=== PATIENT | male | born 1995 | race Two or more races ===

== ENCOUNTER 2020-02-07 02:59 | Emergency (ER) | payer MEDICAID ==
[~2020-02-07] VITALS: Ht 170.2 cm; Wt 127.3 kg
[2020-02-07 04:32] LABS: ANION GAP 6 mmol/L (8-16); CALCIUM, TOTAL 8.3 mg/dL (8.8-10.5); CARBON DIOXIDE 31 mmol/L (22-29); CHLORIDE 102 mmol/L (98-107); CREATININE 0.99 mg/dL (0.60-1.30); GLOMERULAR FILTR. RATE CALC > 60 mL/min (>60); GLUCOSE,RANDOM 123 mg/dL (70-110); POTASSIUM 3.8 mmol/L (3.5-5.1); SODIUM SERUM 139 mmol/L (136-145); UREA NITROGEN, BLOOD 11 mg/dL (7-18)
[2020-02-07 04:33] LABS: BASOPHILS % (AUTO) 0.3 % (0.0-2.0); HEMATOCRIT 43.9 % (41-53); HEMOGLOBIN 14.7 g/dL (13.5-17.5); LYMPHOCYTES # (AUTO) 1.6 K/uL (1.0-4.8); LYMPHOCYTES % (AUTO) 26.9 % (22.0-44.0); MEAN CORPUSCULAR HEMOGLOBIN 29.3 pg (26.0-34.0); MEAN CORPUSCULAR HGB CONC 33.5 G/dL (31.0-37.0); MEAN CORPUSCULAR VOLUME 87 fL (80-100); MONOCYTES # (AUTO) 0.5 K/uL (0.1-1.0); MONOCYTES % (AUTO) 7.5 % (2.0-9.0); NEUTROPHILS # (AUTO) 3.9 K/uL (1.8-7.7); NEUTROPHILS % (AUTO) 64.3 % (40.0-70.0); PLATELET COUNT (AUTO) 212 K/uL (150-450); RED BLOOD CELL COUNT(AUTO) 5.03 MIL/uL (4.50-5.90); RED CELL DISTRIBUTION WIDTH 13.6 % (11.5-14.5)
[2020-02-07 04:34] LABS: PROTHROMBIN TIME 10.3 SEC (9.4-11.6)
[2020-02-07 04:57] LABS: ALANINE AMINOTRANSFERASE 81 U/L (12-78); ALBUMIN 4.1 g/dL (3.4-5.0); ALKALINE PHOSPHATASE 92 U/L (46-116); ASPARTATE AMINOTRANSFERASE 38 U/L (15-37); BILIRUBIN,TOTAL 0.3 mg/dL (0.1-1.0); CREATINE KINASE, TOTAL ONLY 90 U/L (39-308); TOTAL PROTEIN, SERUM 8.2 g/dL (6.4-8.2)
[2020-02-07] MEDS ORDERED: IBUPROFEN 800 MG TABLET PO ONE (05:00)
[2020-02-07] MEDS ORDERED: ACETAMINOPHEN 500 MG TABLET PO ONE (05:00)
[2020-02-07 05:12] LABS: B-TYPE NATRIURETIC PEPTIDE < 4 pg/mL (0-100)
[2020-02-07 08:17] VITALS: BP 123/68
== END 2020-02-07 08:15 | disposition home or self-care (01) ==
LOC: EMS 02:59
DX: R07.89 Other chest pain (principal); R05 Cough; R00.2 Palpitations; Z20.828 Contact with and (suspected) exposure to other viral communicable diseases
CPT/HCPCS: 93005

== ENCOUNTER 2020-12-17 06:57 | Emergency (ER) | payer MEDICAID ==
[~2020-12-17] VITALS: Ht 185.4 cm; Wt 118.2 kg
[2020-12-17] MEDS ORDERED: ACETAMINOPHEN 500 MG TABLET PO ONE (07:15)
[2020-12-17] MEDS ORDERED: ONDANSETRON HCL 4 MG TABLET PO ONE (07:15)
[2020-12-17] MEDS ORDERED: MAG HYDROX/AL HYDROX/SIMETH 30 ML SUSP UDCUP PO ONE (07:15)
[2020-12-17] MEDS ORDERED: FAMOTIDINE 20 MG TABLET PO ONE (07:15)
[2020-12-17 08:14] LABS: COVID AG,FIA SOURCE NASOPHARYNGEAL
[2020-12-17 08:29] VITALS: BP 137/83
[2020-12-17 09:02] LABS: INFLUENZA TYPE A NEGATIVE FOR TYPE A (NEGATIVE)
[2020-12-17 09:03] LABS: INFLUENZA TYPE B NEGATIVE FOR TYPE B (NEGATIVE)
== END 2020-12-17 09:47 | disposition home or self-care (01) ==
LOC: EMS 06:59
DX: R11.2 Nausea with vomiting, unspecified (principal); R10.13 Epigastric pain; R19.7 Diarrhea, unspecified; Z20.822 Contact with and (suspected) exposure to COVID-19
CPT/HCPCS: 87426; 87804; 99284; Q0162; U0003

== ENCOUNTER 2021-01-03 09:49 | Emergency (ER) | payer MEDICAID ==
[~2021-01-03] VITALS: Ht 177.8 cm; Wt 129.6 kg
[2021-01-03] MEDS ORDERED: GuaiFENesin/D-METHORPHAN [SUGAR-FREE] 200-20MG/10 ML SYRUP UDCUP PO ONE (10:15)
[2021-01-03] MEDS ORDERED: IBUPROFEN 600 MG TABLET PO ONE (10:15)
[2021-01-03] MEDS ORDERED: ACETAMINOPHEN 500 MG TABLET PO ONE (10:15)
[2021-01-03 10:29] LABS: COVID AG,FIA SOURCE NASOPHARYNGEAL
[2021-01-03 11:24] VITALS: BP 138/88
== END 2021-01-03 11:29 | disposition home or self-care (01) ==
LOC: EDUNIT# 09:49 → EMS 09:49 → EDBD 09:49 → EMS 11:29
DX: J40 Bronchitis, not specified as acute or chronic (principal)
CPT/HCPCS: 87426; 99284; Z7502; Z7610

== ENCOUNTER 2021-04-03 07:04 | Emergency (ER) | payer MEDICAID, OTHER ==
[~2021-04-03] VITALS: Ht 188 cm; Wt 127.3 kg
[2021-04-03 07:05] VITALS: BP 156/95
== END 2021-04-03 08:25 | disposition home or self-care (01) ==
LOC: EMS 07:05
DX: S93.402A Sprain of unspecified ligament of left ankle, initial encounter (principal); W01.0XXA Fall on same level from slipping, tripping and stumbling without subsequent striking against object, initial encounter; Y93.89 Activity, other specified; Y92.89 Other specified places as the place of occurrence of the external cause; Y99.8 Other external cause status
CPT/HCPCS: 99283

== ENCOUNTER 2022-04-21 22:11 | Emergency (ER) | payer MEDICAID ==
[~2022-04-21] VITALS: Ht 162.6 cm; Wt 135.4 kg
[2022-04-21 23:43] VITALS: BP 142/90
[2022-04-22 00:06] LABS: COVID AG,FIA SOURCE NASOPHARYNGEAL
[2022-04-22] MEDS ORDERED: ACETAMINOPHEN 500 MG TABLET PO ONE (00:15)
[2022-04-22 00:36] LABS: BASOPHILS % (AUTO) 1.6 % (0.0-2.0); EOSINOPHILS % (AUTO) 2.9 % (1.0-6.0); HEMATOCRIT 39.4 % (41-53); HEMOGLOBIN 13.7 g/dL (13.5-17.5); LYMPHOCYTES # (AUTO) 3.4 K/uL (1.0-4.8); MEAN CORPUSCULAR HEMOGLOBIN 29.9 pg (26.0-34.0); MEAN CORPUSCULAR HGB CONC 34.8 G/dL (31.0-37.0); MEAN CORPUSCULAR VOLUME 86 fL (80-100); MONOCYTES # (AUTO) 0.8 K/uL (0.1-1.0); MONOCYTES % (AUTO) 8.3 % (2.0-9.0); NEUTROPHILS # (AUTO) 5.3 K/uL (1.8-7.7); NEUTROPHILS % (AUTO) 53.2 % (40.0-70.0); PLATELET COUNT (AUTO) 302 K/uL (150-450); RED BLOOD CELL COUNT(AUTO) 4.59 MIL/uL (4.50-5.90); RED CELL DISTRIBUTION WIDTH 13.8 % (11.5-14.5)
[2022-04-22 00:47] LABS: INFLUENZA TYPE A NEGATIVE FOR TYPE A (NEGATIVE); INFLUENZA TYPE B NEGATIVE FOR TYPE B (NEGATIVE)
[2022-04-22 01:10] LABS: ANION GAP 11 mmol/L (8-16); CARBON DIOXIDE 28 mmol/L (22-29); CHLORIDE 104 mmol/L (98-107); GLUCOSE,RANDOM 92 mg/dL (70-110); POTASSIUM 4.2 mmol/L (3.5-5.1); SODIUM SERUM 143 mmol/L (136-145); UREA NITROGEN, BLOOD 11 mg/dL (7-18)
[2022-04-22 01:11] LABS: GLOMERULAR FILTR. RATE CALC > 60 mL/min (>60)
[2022-04-22 01:20] LABS: ALANINE AMINOTRANSFERASE 118 U/L (12-78); ALBUMIN 3.7 g/dL (3.4-5.0); ALKALINE PHOSPHATASE 79 U/L (46-116); ASPARTATE AMINOTRANSFERASE 42 U/L (15-37); BILIRUBIN,TOTAL 0.2 mg/dL (0.1-1.0); CREATINE KINASE, TOTAL ONLY 82 U/L (39-308); TOTAL PROTEIN, SERUM 7.5 g/dL (6.4-8.2)
[2022-04-22 01:21] LABS: B-TYPE NATRIURETIC PEPTIDE < 5 pg/mL (0-100)
== END 2022-04-22 02:33 | disposition home or self-care (01) ==
LOC: EMS 22:14
DX: B34.9 Viral infection, unspecified (principal); Z20.822 Contact with and (suspected) exposure to COVID-19; Z98.890 Other specified postprocedural states
CPT/HCPCS: 71045; 80053; 82550; 83880; 84484; 85025; 87804; 93005; 99285; 36415-L1; 36415-TC